=== PATIENT | male | born 1985 | race African-American/Black ===

== ENCOUNTER 2016-05-06 06:17 | Emergency (ER) | payer OTHER ==
--- NOTE | ~2016-05-06 | CT71 ---
[facility] A Service of [facility] RADIOLOGY TEXT RESULTS PATIENT: LILY CARRILLO LOCATION: [facility] : 83 UNIT #: [id number] AGE: [address]: Lev Barboza MD SEX: M ORDER DR: [id number] [facility] [address] [place], [place] [address] [id number] MR#: [id number] Acc #: [id number] NAME: LILY CARRILLO : 1985 SEX: M STUDY DATE/TIME: 05/06/2016 7:40 UNIT: PITO ROOM: STUDY DESCRIPTION: CT Head Wo Contrast Attending Physician: Lev Barboza M.D. Ordering Physician: Lev Barboza M.D. Primary Care Physician: Duong Mantilla M.D. MEDICAL IMAGING REPORT This report is preliminary unless electronic signature is present EXAM CT head without contrast 05/06/2016 HISTORY 30-year-old male with headache status post syncopal episode today. COMPARISON None. TECHNIQUE Routine unenhanced axial images performed through the brain. This CT exam was performed with one or more of the following radiation dose reduction techniques: automatic control, adjustment of mA and/or kV according to patient size, and iterative reconstruction. FINDINGS No hemorrhage, acute infarction, mass lesion, or abnormal extraaxial fluid collection. No midline shift or focal mass effect. Ventricular system normal size and configuration. No acute bony abnormality. Small mucous retention cyst right sphenoid sinus. Visualized mastoid air cells are clear. IMPRESSION 1. No acute intracranial abnormality. 2. Small mucous retention cyst right sphenoid. Dictated by... Michael Arguelles M.D. THIS IS AN ELECTRONICALLY VERIFIED REPORT Michael Arguelles M.D. at 05/07/2016 6:07 AM DELMIS/gutierrez [facility] A Service of [facility] RADIOLOGY TEXT RESULTS PATIENT: LILY CARRILLO LOCATION: [facility] : 83 UNIT #: [id number] AGE: [address]: Lev Barboza MD SEX: M ORDER DR: TD: 05/07/2016 05:09 JOB #: [id number] MEDICAL IMAGING REPORT COPY
--- NOTE | ~2016-05-06 | EKG ---
PATIENT: LILY CARRILLO UNIT #: [id number] Ventricular Rate: 66 BPM Atrial Rate: 66 BPM P-R Interval: 158 ms QRS Duration: 86 ms Q-T Interval: 398 ms QTC Calculation(Bezet): 417 ms P [place]: 63 degrees Calculated R [place]: 52 degrees Calculated T [place]: 17 degrees Diagnosis Line: Normal sinus rhythm Diagnosis Line: Nonspecific T wave abnormality Diagnosis Line: Otherwise normal ECG Diagnosis Line: No previous ECGs available Diagnosis Line: Confirmed by NIC VASQUEZ MD ([id number]) on 05/08/2016 Diagnosis Line: 7:27:05 AM INTERPRETING MD: CHRISTINA ALLEN
[2016-05-06 06:01] LABS: BASOPHIL% 0.5 % (0-2.5); EOSINOPHIL# 0.4 X10e3 (0-0.7); EOSINOPHIL% 5.5 % (0.0-7.0); HEMATOCRIT 41.5 % (38.0-50.0); HEMOGLOBIN 13.7 gm/dL (13.0-16.0); LYMPHOCYTE% 47.2 % (17.0-45.0); MEAN CELL VOLUME 94.9 FL (83-96); MEAN CORPUSCULAR HEMOGLOBIN 31.3 PG (28-34); MEAN PLATELET VOLUME 8.4 FL (6.5-11.5); MONOCYTE# 0.3 X10e3 (0-1.0); MONOCYTE% 4.3 % (3.0-12.0); NEUTROPHIL# 2.7 X10e3 (1.5-7.1); NEUTROPHIL% 42.5 % (40-75); PLATELET COUNT 262 X10e3 (140-420); RED BLOOD COUNT 4.37 X10e (3.90-5.60); RED CELL DISTRIBUTION WIDTH 12.2 % (11.0-15.5); WHITE BLOOD COUNT 6.4 X10e3 (4.0-10.5)
[2016-05-06 06:07] LABS: DIFF IND NO
[2016-05-06 06:10] LABS: POC - CKMB <1.0 ng/mL (0.0-7.9); POC - TROPONIN <0.05 ng/mL (<=0.05)
[~2016-05-06 06:17] MED LIST: CIPRO PO; FLEXERIL PO; NAPROXEN PO; NORCO 5/325 TAB1 TAB PO; PYRIDIUM PO
[2016-05-06 06:41] LABS: ALBUMIN SERUM 3.8 g/dL (3.5-5.0); ALKALINE PHOSPHATASE 51 U/L (32-92); ALT (SGPT) 21 U/L (10-40); AST (SGOT) 24 U/L (10-42); BILIRUBIN, DIRECT 0.1 mg/dL (0.0-0.2); BILIRUBIN,INDIRECT 0.4 mg/dL (0.0-0.9); BILIRUBIN,TOTAL 0.5 mg/dL (0.2-2.0); BLOOD UREA NITROGEN 17 mg/dL (9-23); BUN/CREATININE RATIO 14.16; CALCIUM SERUM 8.9 mg/dL (8.4-10.2); CARBON DIOXIDE 26 mmol/L (22-31); CHLORIDE 108 mmol/L (100-111); CREATININE SERUM 1.2 mg/dL (0.6-1.4); GLOM FILT RATE Estimated ABOVE60 mL/min (>60); GLUCOSE FASTING 114 mg/dL (70-110); POTASSIUM 3.6 mmol/L (3.5-5.1); PROTEIN TOTAL SERUM 6.9 g/dL (6.0-8.3); SODIUM 138 mmol/L (135-145)
[2016-05-06 07:54] LABS: URINE SOURCE CLEAN CATCH
[2016-05-06 07:58] LABS: URINE APPEARANCE CLEAR; URINE BILIRUBIN NEG (NEG); URINE BLOOD 1+ (NEG); URINE COLOR YELLOW; URINE GLUCOSE NEG (NEG); URINE KETONE NEG (NEG); URINE LEUKOCYTE ESTERASE NEG (NEG); URINE NITRATE NEG (NEG); URINE PH 5.5 (5-8); URINE PROTEIN NEG (NEG); URINE SPECIFIC GRAVITY 1.019 (1.003-1.035); URINE UROBILINOGEN 0.2 MG/DL (NEG)
[2016-05-06 08:01] LABS: URINE BACTERIA AUWI NEG (NEGATIVE); URINE SQUAMOUS EPITHELIAL CELL NONE SEEN /[HPF]
[2016-05-06 08:03] LABS: CULTURE INDICATED? NO
[2016-05-06 08:29] LABS: POC - CKMB <1.0 ng/mL (0.0-7.9); POC - TROPONIN <0.05 ng/mL (<=0.05)
== END 2016-05-06 08:50 | disposition home or self-care (01) ==
LOC: CED 06:17
PROVIDERS: Emergency Medicine
DX: S09.90XA Unspecified injury of head, initial encounter (principal); R55 Syncope and collapse; F17.200 Nicotine dependence, unspecified, uncomplicated; Z79.899 Other long term (current) drug therapy; W18.30XA Fall on same level, unspecified, initial encounter
CPT/HCPCS: 36415; 70450; 80048; 80076; 81003; 82553; 82947; 84484; 85025; 93005; 96360; 99285